=== PATIENT | female | born 1990 | race African-American/Black ===

== ENCOUNTER 2018-08-18 09:06 | Emergency (ER) | payer SELFPAY ==
[2018-08-18 09:14] VITALS: BP 100/63; PULSE 83; TEMP 98.9; BMI 29.2
[2018-08-18] MEDS ORDERED: IBUPROFEN 600 MG TABLET (FP) PO ONE ×2 (10:04→10:06)
--- NOTE | 2018-08-18 11:09 | PDOC ---
History of Present Illness - General Chief Complaint: Cold Symptoms Stated Complaint: COLD SYMPTOMS,PINK EYE Time Seen by Provider: 08/18/18 09:42 History Source: Patient Exam Limitations: No Limitations - History of Present Illness Initial Comments: 08/18/18 12:35 Patient is a 27-year-old female in no past medical history who presents to emergency department today with 3 days of sore throat and pinkeye. Patient states that her daughter was recently diagnosed with strep throat and she is concerned she has the same. She states that it is painful to swallow. She also states that her eyes have been pink bilaterally for 3 days. Denies fevers, chills, cough, runny nose, nausea vomiting and diarrhea. Past History - Travel Traveled outside of the country in the last 30 days: No Close contact w/someone who was outside of country & ill: No - Past Medical History Allergies/Adverse Reactions: Allergies Allergy/AdvReac Type Severity Reaction Status Date / Time No Known Allergies Allergy Verified 08/18/18 09:14 Home Medications: Ambulatory Orders Amoxicillin - [Amoxicillin 500mg Capsule -] 500 mg PO BID #14 capsule 08/18/18 Ofloxacin 0.3% Ophth Soln [Ocuflox -] 1 drop OP Q4H #100 drops 08/18/18 CVA: No COPD: No - Suicide/Smoking/Psychosocial Hx Smoking History: Never smoked Have you smoked in the past 12 months: No Information on smoking cessation initiated: No Hx Alcohol Use: No Drug/Substance Use Hx: No Review of Systems - Review of Systems Able to Perform ROS?: Yes Comments:: 08/18/18 12:36 CONSTITUTIONAL: Absent: fever, chills, diaphoresis, generalized weakness, malaise, loss of appetite HEENT: Present: sore throat, pink eye Absent: rhinorrhea, nasal congestion, throat swelling, difficulty swallowing, mouth swelling, ear pain, eye pain, visual Changes CARDIOVASCULAR: Absent: chest pain, loss of consciousness, palpitations, irregular heart rate, peripheral edema RESPIRATORY: Absent: cough, shortness of breath, dyspnea with exertion, orthopnea, wheezing, stridor, hemoptysis GASTROINTESTINAL: Absent: abdominal pain, abdominal distension, nausea, vomiting, diarrhea, constipation, melena, hematochezia GENITOURINARY: Absent: dysuria, frequency, urgency, hesitancy, hematuria, flank pain, genital pain MUSCULOSKELETAL: Absent: myalgia, arthralgia, joint swelling SKIN: Absent: rash, itching, pallor HEMATOLOGIC/IMMUNOLOGIC: Absent: easy bleeding, easy bruising, lymphadenopathy, frequent infections ENDOCRINE: Absent: unexplained weight gain, unexplained weight loss, heat intolerance, cold intolerance NEUROLOGIC: Absent: headache, focal weakness or paresthesias, dizziness, unsteady gait, seizure, mental status changes, bladder or bowel incontinence PSYCHIATRIC: Absent: anxiety, depression, suicidal or homicidal ideation, hallucinations. Is the patient limited Malagasy proficient: No *Physical Exam - Vital Signs Last Vital Signs Temp Pulse Resp BP Pulse Ox 98.9 F 83 16 100/63 100 08/18/18 09:13 08/18/18 09:13 08/18/18 09:13 08/18/18 09:13 08/18/18 09:13 - Physical Exam Comments: 08/18/18 12:36 GENERAL: Well developed, well nourished. Awake and alert. No acute distress. HEENT: Normocephalic, atraumatic. PERRLA, EOMI. No conjunctival pallor. Sclera are non- icteric. Sclera is erythematous b/l. Visual acuity is 20/20 OU. Moist mucous membranes. Oropharynx is erythematous without exudate or edema. Uvula is midline NECK: Supple. Full ROM. No JVD. Carotid pulses 2+ and symmetric, without bruits. No thyromegaly. No lymphadenopathy. CARDIOVASCULAR: Regular rate and rhythm. No murmurs, rubs, or gallops. Distal pulses are 2+ and symmetric. PULMONARY: No evidence of respiratory distress. Lungs clear to auscultation bilaterally. No wheezing, rales or rhonchi. ABDOMINAL: Soft. Non-tender. Non-distended. No rebound or guarding. No organomegaly. Normoactive bowel sounds. MUSCULOSKELETAL Normal range of motion at all joints. No bony deformities or tenderness. No CVA tenderness. EXTREMITIES: No cyanosis. No clubbing. No edema. No calf tenderness. SKIN: Warm and dry. Normal capillary refill. No rashes. No jaundice. NEUROLOGICAL: Alert, awake, appropriate. Cranial nerves 2-12 intact. No deficits to light touch and temperature in face, upper extremities and lower extremities. No motor deficits in the in face, upper extremities and lower extremities. Normoreflexic in the upper and lower extremities. Normal speech. Toes are down- going bilaterally. Gait is normal without ataxia. PSYCHIATRIC: Cooperative. Good eye contact. Appropriate mood and affect. Moderate Sedation - Procedure Monitoring Vital Signs: Procedure Monitoring Vital Signs Temperature 98.9 F 08/18/18 09:13 Pulse Rate 83 08/18/18 09:13 Respiratory Rate 16 08/18/18 09:13 Blood Pressure 100/63 08/18/18 09:13 O2 Sat by Pulse Oximetry (%) 100 08/18/18 09:13 ED Treatment Course - Medications Given in the ED: ED Medications Discontinued Medications Generic Name Dose Route Start Last Admin Trade Name Matthewq PRN Reason Stop Dose Admin Ibuprofen 600 mg 08/18/18 10:04 08/18/18 10:11 Motrin - PO 08/18/18 10:05 600 mg ONCE ONE Administration Medical Decision Making - Medical Decision Making 08/18/18 13:37 Patient's rapid strep testing is positive at this time. We'll treat with amoxicillin. Given patient is positive strep throat we'll treat this as a bacterial conjunctivitis. Ofloxacin drops given. Supportive therapy recommended. Patient to follow-up with her PCP DC home I discussed the physical exam findings, ancillary test results and final diagnoses with the patient. I answered all of the patient's questions. The patient was satisfied with the care received and felt comfortable with the discharge plan and treatment plan. The Patient agrees to follow up with the primary care physician/specialist within 24-72 hours. Return precautions were given. *DC/Admit/Observation/Transfer Diagnosis at time of Disposition: Strep throat Conjunctivitis Qualifiers: Conjunctivitis type: acute Acute conjunctivitis type: unspecified Laterality: bilateral Qualified Code(s): H10.33 - Unspecified acute conjunctivitis, bilateral - Discharge Dispostion Disposition: HOME Condition at time of disposition: Stable Decision to Admit order: No - Prescriptions Prescriptions: Amoxicillin - [Amoxicillin 500mg Capsule -] 500 mg PO BID #14 capsule Ofloxacin 0.3% Ophth Soln [Ocuflox -] 1 drop OP Q4H #100 drops - Referrals Referrals: Rustam Sage MD [Staff Physician] - - Patient Instructions Printed Discharge Instructions: DI for Strep Throat, DI for Conjunctivitis Additional Instructions: You have strep throat. This is a bacterial infection. Please take the amoxicillin 500 mg twice a day for one week. Please finish the prescription even if you feel better. You may take Motrin 800 mg every 8 hours as needed for pain or fever. Warm water gargles and cough drops and just may also help her symptoms. Please throw way your toothbrush 3 days into treatment to prevent reinfection. Please follow up with your primary care doctor next week. Return to emergency department if you have worsening pain, difficulty swallowing , changes in your voice, lightheadedness, dizziness, or any changes in your symptoms. You also have conjunctivitis Use the eye drops as prescribed to both eyes Warm compresses may help your symptoms as well Follow up with your primary care doctor - Post Discharge Activity Forms/Work/School Notes: Back to Work
== END 2018-08-18 11:17 | disposition home or self-care (01) ==
LOC: JERFT 09:06
DX: H10.33 Unspecified acute conjunctivitis, bilateral (principal); J02.0 Streptococcal pharyngitis
CPT/HCPCS: 87880; 99281-25